=== PATIENT | male | born 1965 | race Caucasian/White ===

== ENCOUNTER → 2017-09-22 | Outpatient (CLI) | payer OTHER ==
[~2017-09-22] MED LIST: TUBERCULIN PPD 5TUB.UNIT 0.1 ML TEST. ID ONE
== END | disposition home or self-care (01) ==
LOC: LAB 10:09
PROVIDERS: ATTEND Family Medicine
DX: Z11.1 Encounter for screening for respiratory tuberculosis (principal)
CPT/HCPCS: 96372